=== PATIENT | female | born 1950 | race African-American/Black ===

== ENCOUNTER 2019-06-24 18:11 | Emergency (ER) | payer OTHER, MEDICAID ==
[~2019-06-24] VITALS: Ht 160 cm; Wt 77.1 kg
[2019-06-24] MEDS ORDERED: ASA81BEC PO (18:18)
[2019-06-24] MEDS ORDERED: LISINOPRIL-HCT1 EAC1 PO (18:18)
[2019-06-24 18:31] LABS: ABSOLUTE BASOPHILS 0.1 thou/uL (0.0-0.2); ABSOLUTE EOSINOPHILS 0.8 thou/uL (0.0-0.7); ABSOLUTE LYMPHOCYTES 1.6 thou/uL (0.8-5.3); ABSOLUTE MONOCYTES 0.8 thou/uL (0.0-1.2); ABSOLUTE NEUTROPHILS 10.9 thou/uL (1.6-8.1); BASOPHILS 0.7 %; EOSINOPHILS 5.5 %; HEMATOCRIT 39.2 % (37.0-47.0); HEMOGLOBIN 13.3 gm/dL (12.0-15.0); LYMPHOCYTES 11.5 %; MCH 29.4 pg (26.0-34.0); MCHC 33.9 g/dL (28.0-37.0); MCV 86.8 fL (80.0-100.0); MONOCYTES 5.8 %; MPV 9.1 fl. (7.2-11.1); NUCLEATED RBCS 0 /100WBC; PLATELET COUNT* 233 thou/uL (150-400); POLYS 76.5 %; RBC 4.52 mil/uL (4.20-5.00); RDW-CV 14.5 % (10.5-14.5); WBC 14.2 thou/uL (4.0-11.0)
[2019-06-24] MEDS ORDERED: ZPAK PO (18:37)
[2019-06-24] MEDS ORDERED: PREDNISONE 20 M20 M1 PO (18:37)
[2019-06-24] MEDS ORDERED: VENTOLIN HFA 1818 GM INH (18:37)
[2019-06-24 18:48] LABS: CALCIUM 8.9 mg/dL (8.5-10.1); CREATININE 0.8 mg/dL (0.6-1.3)
[2019-06-24 18:52] LABS: ALBUMIN 3.9 g/dL (3.4-5.0); TOTAL BILIRUBIN 0.4 mg/dL (<0.1-1.0); TOTAL PROTEIN 8.1 g/dL (6.4-8.2)
[2019-06-24 20:41] VITALS: BP 216/99
--- NOTE | 2019-06-29 14:59 | EKG ---
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: : 1950 Requested By: Alex Montoya Order Number: [id number] MD: Toino Chaparro Measurements Intervals [place] Rate: 106 P: 80 CT: 194 QRS: 59 QRSD: 72 T: 95 QT: 336 QTc: 447 Interpretive Statements Sinus tachycardia Right atrial enlargement Consider left ventricular hypertrophy Nonspecific T abnormalities, lateral leads No previous ECG available for comparison Electronically Signed On 06-25-2019 10:28:37 HEALTH PROGRAM DIRECTOR by Tonio Chaparro [email or web address] <ELECTRONICALLY SIGNED> By: Tonio Chaparro MD, [facility] 06/25/19 1028 [id number] [id number] Tonio Chaparro MD, [facility] /EPI
== END 2019-06-24 20:44 | disposition home or self-care (01) ==
LOC: M.ERS 18:11
PROVIDERS: Family Medicine
DX: J44.1 Chronic obstructive pulmonary disease with (acute) exacerbation (principal); J40 Bronchitis, not specified as acute or chronic; Z86.73 Personal history of transient ischemic attack (TIA), and cerebral infarction without residual deficits